=== PATIENT | female | born 1955 | race Caucasian/White ===

== ENCOUNTER 2019-01-08 00:28 | Outpatient (CLI) | payer MEDICARE ==
[2019-01-08 11:51] LABS: #Eosinphils 0.1 thou/uL (0.0-0.7); #Lymphocytes 2.7 thou/uL (1.20-3.40); #Monocytes 0.6 thou/uL (0.11-0.59); #Neutrophils 4.3 thou/uL (1.40-6.50); %Basophils 0.4 % (0.0-1.0); %Eosinophils 1.9 % (0.0-10.0); %Lymphocytes 34.7 % (21.0-51.0); %Neutrophils 54.9 % (42.0-75.0); Hemoglobin 14.2 g/dL (12.0-16.0); Mean Corpuscular HGB CONC 31.2 g/dL (32.0-36.0); Mean Corpuscular Hemoglobin 27.9 pg (27.0-31.0); Mean Corpuscular Volume 89.6 fL (78.0-98.0); Mean Platelet Volume 7.3 fL (7.4-10.4); Platelet Count 324 thou/uL (130-400); RBC Distribution Width 12.1 % (11.5-14.5); White Blood Cell (WBC) Count 7.9 thou/uL (4.8-10.8)
[2019-01-08 12:13] LABS: ALT (SGPT) 27 U/L (8-55); AST (SGOT) 24 U/L (5-34); Albumin 4.1 g/dL (3.4-4.8); Alkaline Phosphatase 104 U/L (40-150); Anion Gap 16 mmol/L (10-20); BUN (Urea Nitrogen) 14 mg/dL (9.8-20.1); Bilirubin, Direct 0.1 mg/dL (0.1-0.3); Bilirubin, Total 0.3 mg/dL (0.2-1.2); Calc. Creatinine Clearance 0 mL/min (70-130); Calcium 9.4 mg/dL (7.8-10.44); Carbon Dioxide 23 mmol/L (23-31); Chloride 104 mmol/L (98-107); Estimated GFR-MDRD 59; Glucose 258 mg/dL (80-115); Potassium 4.5 mmol/L (3.5-5.1); Protein, Total 7.2 g/dL (6.0-8.3); Sodium 138 mmol/L (136-145)
== END 2019-01-08 00:29 | disposition home or self-care (01) ==
LOC: LABBT 00:28
PROVIDERS: ATTEND Surgery
DX: Z01.818 Encounter for other preprocedural examination (principal); K80.20 Calculus of gallbladder without cholecystitis without obstruction
CPT/HCPCS: 80048; 80076; 85025; 93005; 93010

== ENCOUNTER 2019-01-11 05:47 | Day surgery (SDC) | payer MEDICARE ==
[2019-01-08 11:11] VITALS: BMI 50.1
[2019-01-11] MEDS ORDERED: Bupivacaine HCl 0.5%/Epinephrine 1:200,000/PF 30 ml Vial ONE (06:46)
== END 2019-01-11 05:55 | disposition home or self-care (01) ==
LOC: SDC 05:47 → EDSTATUS 11:15
PROVIDERS: ATTEND Surgery
DX: K80.20 Calculus of gallbladder without cholecystitis without obstruction (principal); Z53.9 Procedure and treatment not carried out, unspecified reason; Z79.4 Long term (current) use of insulin; Z79.899 Other long term (current) drug therapy; Z91.09 Other allergy status, other than to drugs and biological substances
CPT/HCPCS: 36416; J0670

== ENCOUNTER 2019-03-05 09:48 | Day surgery (SDC) | payer MEDICARE ==
[2019-03-02 11:32] VITALS: BMI 47.0
[2019-03-05] MEDS ORDERED: Fentanyl 100 MCG/2 ML VIAL ONE (10:36)
[2019-03-05 10:59] LABS: #Eosinphils 0.1 thou/uL (0.0-0.7); #Lymphocytes 2.6 thou/uL (1.20-3.40); #Monocytes 0.7 thou/uL (0.11-0.59); #Neutrophils 5.8 thou/uL (1.40-6.50); %Basophils 0.3 % (0.0-1.0); %Eosinophils 1.5 % (0.0-10.0); %Monocytes 7.5 % (0.0-10.0); %Neutrophils 62.6 % (42.0-75.0); Hemoglobin 14.8 g/dL (12.0-16.0); Mean Corpuscular HGB CONC 32.4 g/dL (32.0-36.0); Mean Corpuscular Volume 89.6 fL (78.0-98.0); Mean Platelet Volume 7.5 fL (7.4-10.4); Platelet Count 286 thou/uL (130-400); RBC Distribution Width 12.7 % (11.5-14.5); Red Blood Cell (RBC) Count 5.09 mill/uL (4.20-5.40); White Blood Cell (WBC) Count 9.2 thou/uL (4.8-10.8)
[2019-03-05] MEDS ORDERED: Bupivacaine/Epinephrine 0.25% 30 ML VIAL ONE (11:06)
[2019-03-05 11:35] LABS: ALT (SGPT) 38 U/L (8-55); AST (SGOT) 26 U/L (5-34); Albumin 4.4 g/dL (3.4-4.8); Alkaline Phosphatase 104 U/L (40-150); Anion Gap 15 mmol/L (10-20); BUN (Urea Nitrogen) 17 mg/dL (9.8-20.1); Bilirubin, Direct 0.2 mg/dL (0.1-0.3); Bilirubin, Total 0.5 mg/dL (0.2-1.2); Calc. Creatinine Clearance 145 mL/min (70-130); Calcium 9.7 mg/dL (7.8-10.44); Carbon Dioxide 23 mmol/L (23-31); Chloride 103 mmol/L (98-107); Estimated GFR-MDRD 69; Glucose 181 mg/dL (80-115); Potassium 4.2 mmol/L (3.5-5.1); Protein, Total 7.8 g/dL (6.0-8.3); Sodium 137 mmol/L (136-145)
[2019-03-05] MEDS ORDERED: SUGAMMADEX SODIUM 500 MG/5 ML VIAL ONE (13:04)
[2019-03-05] MEDS ORDERED: HYDROcodone/Acetaminophen 5/325 mg Tablet ONE (14:51)
[2019-03-05] MEDS ORDERED: Succinylcholine Chloride 20 MG/ML 10 ml SYRINGE FS ONE (15:16)
[2019-03-05] MEDS ORDERED: Ondansetron PF 4 MG/2 ML Vial ONE (15:16)
[2019-03-05] MEDS ORDERED: PROPOFOL 200 MG/20 ML VIAL ONE (15:16)
[2019-03-05] MEDS ORDERED: Lidocaine 1% PF 5 ML VIAL ONE (15:16)
[2019-03-05] MEDS ORDERED: Ketorolac Tromethamine 30 MG/ML VIAL ONE (15:16)
[2019-03-05] MEDS ORDERED: Rocuronium Bromide 10 MG/ML (10ML VIAL) ONE (15:16)
[2019-03-05] MEDS ORDERED: Dexamethasone 20 MG/5 ML VIAL ONE (15:16)
[2019-03-05] MEDS ORDERED: Metoclopramide HCl 10 MG/2 ML VIAL ONE (15:16)
--- NOTE | 2019-03-05 20:02 | OP ---
DATE OF PROCEDURE: 03/05/2019 PREOPERATIVE DIAGNOSIS: Symptomatic gallstones. POSTOPERATIVE DIAGNOSIS: Symptomatic gallstones. PROCEDURE: Laparoscopic cholecystectomy. ANESTHESIA: General. ESTIMATED BLOOD LOSS: Minimal. COMPLICATIONS: None. SPECIMEN: Gallbladder. FINDINGS: Chronic cholecystitis. PROCEDURE IN DETAIL: The patient was taken to the operating room and laid supine on the operating room table. After general anesthetic was obtained, the abdomen was prepped and draped in a sterile fashion. A curved incision was made below the umbilicus. Cautery was used to dissect down to the umbilical fascia. Umbilical fascia was incised and held up using a Darrell. The abdominal cavity was entered using a Rekha clamp. Holding stitch of Vicryl was placed on each side of the fascia. Cole trocar was placed. High-flow pneumoperitoneum was obtained. An upper midline 5 mm port and 2 right upper quadrant 5 mm ports were placed under direct camera visualization. The gallbladder was retracted from the gallbladder fossa. The peritoneum of the gallbladder was opened anteriorly and posteriorly. The critical view triangle was seen showing only the cystic duct and cystic artery branching from medial to lateral. There were no other branching structures. Two clips were placed proximally on the cystic duct and one laterally. It was cut using laparoscopic scissors. The cystic artery was taken in the same way. Electrocautery was then used to dissect the gallbladder out of the gallbladder fossa. The gallbladder was placed in an Endo catch bag and brought out through the Cole. There was no bleeding or bile in the liver bed. The cystic duct stump and cystic artery stump were intact, without evidence of extravasation or bleeding. All port sites were infiltrated using local anesthesia. All ports were removed under camera visualization. Pneumoperitoneum was let down. The Vicryl was used to close the fascial defect below the umbilicus. All incisions were irrigated and closed using 4-0 Monocryl and Dermabond. The patient was en route to Recovery in stable condition. All instrument counts, needle counts and lap counts were correct. Job ID: [id number]
== END 2019-03-05 15:32 | disposition home or self-care (01) ==
LOC: SDC 09:48
PROVIDERS: ATTEND Surgery
PROC: 0FT44ZZ Resection of Gallbladder, Percutaneous Endoscopic Approach (ICD-10-PCS; principal; 2019-03-05)
DX: K80.10 Calculus of gallbladder with chronic cholecystitis without obstruction (principal); E11.9 Type 2 diabetes mellitus without complications; K58.9 Irritable bowel syndrome, unspecified; Z87.891 Personal history of nicotine dependence; Z91.09 Other allergy status, other than to drugs and biological substances; Z90.89 Acquired absence of other organs; Z79.4 Long term (current) use of insulin; Z79.899 Other long term (current) drug therapy
CPT/HCPCS: 36415; 36416; 80048; 80076; 85025; 88304; J0131; J3010

== ENCOUNTER 2022-04-12 12:52 | Inpatient (IN) | payer MEDICARE ==
[~2022-04-12 12:52] MED LIST: Iopamidol-370 76% 500 ML 1 ML ONE
[2022-04-12 14:32] LABS: #Basophils 0.1 thou/uL (0.0-0.2); #Eosinphils 0.1 thou/uL (0.0-0.7); #Lymphocytes 2.4 thou/uL (1.20-3.40); #Monocytes 0.7 thou/uL (0.11-0.59); %Basophils 0.7 % (0.0-1.0); %Eosinophils 1.3 % (0.0-10.0); %Lymphocytes 25.6 % (21.0-51.0); %Monocytes 7.8 % (0.0-10.0); %Neutrophils 64.7 % (42.0-75.0); Hemoglobin 13.4 g/dL (12.0-16.0); Mean Corpuscular HGB CONC 34.2 g/dL (32.0-36.0); Mean Corpuscular Hemoglobin 30.9 pg (27.0-31.0); Mean Corpuscular Volume 90.4 fL (78.0-98.0); Platelet Count 266 thou/uL (130-400); Red Blood Cell (RBC) Count 4.32 mill/uL (4.20-5.40); White Blood Cell (WBC) Count 9.2 thou/uL (4.8-10.8)
[2022-04-12 14:53] LABS: ALT (SGPT) 10 U/L (8-55); AST (SGOT) 15 U/L (5-34); Alkaline Phosphatase 99 U/L (40-110); Anion Gap 15 mmol/L (10-20); BUN (Urea Nitrogen) 24 mg/dL (9.8-20.1); Bilirubin, Total 0.5 mg/dL (0.2-1.2); Calc. Creatinine Clearance 0 mL/min (70-130); Carbon Dioxide 24 mmol/L (23-31); Chloride 103 mmol/L (98-107); Globulin 3.4 g/dL (2.4-3.5); Glucose 214 mg/dL (80-115); Potassium 4.9 mmol/L (3.5-5.1); Protein, Total 7.4 g/dL (5.8-8.1); Sodium 137 mmol/L (136-145)
[2022-04-12] MEDS ORDERED: Enoxaparin Sodium 40 MG/0.4 ML SYRINGE ONE (16:16)
[2022-04-12] MEDS ORDERED: Enoxaparin Sodium 80 MG/0.8 ML SYRINGE ONE (16:16)
[2022-04-12] MEDS ORDERED: Communication Order-Pharmacy FS PRN (18:10)
[2022-04-12] MEDS ORDERED: Senokot S 8.6-50 MG TAB PO PRN (18:10)
[2022-04-12] MEDS ORDERED: Acetaminophen 325 MG TAB PO PRN (18:10)
[2022-04-12] MEDS ORDERED: Bisacodyl 5 MG TAB PO PRN (18:10)
[2022-04-12] MEDS ORDERED: Ondansetron PF 4 MG/2 ML Vial IVP PRN (18:10)
[2022-04-12] MEDS ORDERED: Melatonin 3 MG TAB PO PRN (18:17)
[2022-04-12] MEDS ORDERED: Nitroglycerin 0.4 MG TAB (25 Tab Bottle) SL PRN (18:17)
[2022-04-12] MEDS ORDERED: Morphine 2 MG/ML VIAL SLOW IVP PRN ×2 (18:22→18:26)
[2022-04-12] MEDS ORDERED: Dextrose 50% Abboject 50 ML SYRINGE SLOW IVP PRN (18:24)
[2022-04-12] MEDS ORDERED: HumaLOG 300 UNITS/3 ML VIAL SC PRN ×2 (18:24)
[2022-04-12] MEDS ORDERED: Dextrose 5% in Water 1,000 ML IV PRN (18:24)
[2022-04-12] MEDS ORDERED: Aspirin 325 MG TAB PO SCH (18:30)
[2022-04-12 18:55] VITALS: BMI 50.5
[2022-04-12] MEDS: Sodium Chloride 0.9% 1,000 ML IV SCH (19:24)
[2022-04-12 20:09] LABS: Troponin I Less than 0.010 ng/mL (< 0.028)
[2022-04-12 22:04] LABS: Troponin I Less than 0.010 ng/mL (< 0.028)
[2022-04-13] MEDS ORDERED: Enoxaparin Sodium 80 MG/0.8 ML SYRINGE SC SCH (04:00)
[2022-04-13] MEDS: Enoxaparin Sodium 120 MG/0.8 ML SYRINGE SC SCH ×2 (04:42→17:25)
[2022-04-13] MEDS: Enoxaparin Sodium 30 MG/0.3 ML SYRINGE SC SCH ×2 (04:42→17:25)
[2022-04-13 05:21] LABS: #Eosinphils 0.2 thou/uL (0.0-0.7); #Lymphocytes 2.7 thou/uL (1.20-3.40); #Monocytes 0.6 thou/uL (0.11-0.59); #Neutrophils 3.4 thou/uL (1.40-6.50); %Basophils 0.6 % (0.0-1.0); %Eosinophils 2.4 % (0.0-10.0); %Lymphocytes 39.1 % (21.0-51.0); %Monocytes 9.3 % (0.0-10.0); %Neutrophils 48.6 % (42.0-75.0); Hemoglobin 12.6 g/dL (12.0-16.0); Mean Corpuscular HGB CONC 33.8 g/dL (32.0-36.0); Mean Corpuscular Hemoglobin 30.9 pg (27.0-31.0); Mean Corpuscular Volume 91.3 fL (78.0-98.0); Mean Platelet Volume 6.9 fL (7.4-10.4); Platelet Count 254 thou/uL (130-400); RBC Distribution Width 11.9 % (11.5-14.5); Red Blood Cell (RBC) Count 4.09 mill/uL (4.20-5.40); White Blood Cell (WBC) Count 6.9 thou/uL (4.8-10.8)
[2022-04-13 05:32] LABS: ALT (SGPT) 8 U/L (8-55); AST (SGOT) 10 U/L (5-34); Albumin 3.5 g/dL (3.4-4.8); Alkaline Phosphatase 86 U/L (40-110); Anion Gap 13 mmol/L (10-20); BUN (Urea Nitrogen) 18 mg/dL (9.8-20.1); Bilirubin, Total 0.7 mg/dL (0.2-1.2); Calc. Creatinine Clearance 152 mL/min (70-130); Carbon Dioxide 24 mmol/L (23-31); Cardiac Risk 4.7 (Less than 4.5); Chloride 106 mmol/L (98-107); Cholesterol 170 mg/dl (< 200 Desired); Globulin 3.2 g/dL (2.4-3.5); Glucose 119 mg/dL (80-115); HDL Cholesterol 36 mg/dL (>60 Neg Risk); LDL Cholesterol, Calculated 109 mg/dL; Protein, Total 6.7 g/dL (5.8-8.1); Sodium 139 mmol/L (136-145); Triglycerides 124 mg/dL (Less than 150)
[2022-04-13 05:46] LABS: Hemoglobin A1c 7.6 % (4.0-6.0)
[2022-04-13] MEDS ORDERED: HumaLOG 300 UNITS/3 ML VIAL SC PRN (08:24)
[2022-04-13] MEDS ORDERED: HYDROcodone/Acetaminophen 7.5/325 mg Tablet PO PRN (08:25)
[2022-04-13] MEDS: Saccharomyces boulardii 250 MG CAP PO SCH (08:41)
[2022-04-13] MEDS: Sodium Chloride 0.9% 1,000 ML IV SCH (08:41)
[2022-04-13] MEDS ORDERED: Insulin Glargine 30 UNITS/0.3 ML VIAL SC STA (11:01)
[2022-04-13] MEDS ORDERED: metFORMIN 500 MG TAB PO STA (11:03)
[2022-04-13] MEDS ORDERED: metFORMIN 500 MG TAB PO SCH (11:15)
[2022-04-13] MEDS ORDERED: Insulin Glargine 30 UNITS/0.3 ML VIAL SC SCH (11:15)
[2022-04-13 11:38] LABS: SARS-CoV-2 PCR by NAA Not Detected (NotDetected)
[2022-04-13] MEDS ORDERED: Insulin Regular 300 UNITS/3 ML VIAL SC PRN ×2 (19:24)
[2022-04-14] MEDS: Enoxaparin Sodium 30 MG/0.3 ML SYRINGE SC SCH (04:12)
[2022-04-14] MEDS: Enoxaparin Sodium 120 MG/0.8 ML SYRINGE SC SCH (04:13)
[2022-04-14 07:48] VITALS: BP 128/62; TEMP 97.7
[2022-04-14] MEDS ORDERED: metFORMIN 500 MG TAB PO SCH (08:00)
[2022-04-14] MEDS ORDERED: Insulin Glargine 30 UNITS/0.3 ML VIAL SC SCH ×2 (09:00)
[2022-04-14] MEDS: Saccharomyces boulardii 250 MG CAP PO SCH (09:11)
== END 2022-04-14 11:50 | disposition home or self-care (01) | DRG 176 ==
LOC: ERS 12:52 → 2NO 17:16
PROVIDERS: ADMIT Family Medicine; ATTEND Internal Medicine
DX: I26.99 Other pulmonary embolism without acute cor pulmonale (principal); N17.9 Acute kidney failure, unspecified; Z68.43 Body mass index [BMI] 50.0-59.9, adult; J98.4 Other disorders of lung; F12.90 Cannabis use, unspecified, uncomplicated; E11.65 Type 2 diabetes mellitus with hyperglycemia; G89.4 Chronic pain syndrome; R07.89 Other chest pain; I12.9 Hypertensive chronic kidney disease with stage 1 through stage 4 chronic kidney disease, or unspecified chronic kidney disease; R19.7 Diarrhea, unspecified; N18.2 Chronic kidney disease, stage 2 (mild); E66.01 Morbid (severe) obesity due to excess calories; E11.22 Type 2 diabetes mellitus with diabetic chronic kidney disease; Z20.822 Contact with and (suspected) exposure to COVID-19; Z79.899 Other long term (current) drug therapy; Z79.4 Long term (current) use of insulin; Z79.01 Long term (current) use of anticoagulants; Z91.041 Radiographic dye allergy status; Z72.89 Other problems related to lifestyle; Z87.891 Personal history of nicotine dependence; Z80.1 Family history of malignant neoplasm of trachea, bronchus and lung; Z90.49 Acquired absence of other specified parts of digestive tract; Z86.16 Personal history of COVID-19
CPT/HCPCS: 36415; 36416; 71275; 80053; 80061; 83036; 83605; 83880; 84484; 85025; 85379; 87040; 93005; 93306; 93970; 94760; 96372; J1650; J1815; J7050; Q9967; U0003; U0005